=== PATIENT | male | born 1985 | race Caucasian/White ===

== ENCOUNTER 2017-01-12 07:32 | Day surgery (SDC) | payer OTHER ==
[~2017-01-12 07:32] MED LIST: Midazolam 1 MG/ML 2 ML SDV ONE; fentaNYL 100 MCG/2 ML SDV ONE
[2017-01-12] MEDS ORDERED: Dextrose 5%-0.45% NaCl 1,000 ML IV SCH (08:15)
[2017-01-12] MEDS ORDERED: fentaNYL 100 MCG/2 ML SDV IV ONE ×3 (08:25→14:56)
[2017-01-12] MEDS ORDERED: Midazolam 1 MG/ML 2 ML SDV IV ONE ×3 (08:25→14:56)
[2017-01-12 10:29] VITALS: BP 128/82
--- NOTE | 2017-01-12 13:41 | OR ---
DATE: 01/12/2017 PROCEDURE: Esophagogastroduodenoscopy and multiple pinch biopsies. INSTRUMENT USED: GIF-Q180 Olympus video panendoscope. PREMEDICATIONS: No oral topical anesthesia used. Fentanyl 100 mcg intravenous, Versed 2 mg intravenous. The procedure was done under pulse oximetry, BP recording, and cone treater. INDICATION: The patient with persistent chest and abdominal pain, as well as diarrhea unexplained and not responsive to medical measures. The esophagogastroduodenoscopy is performed for detection of active erosive lesions, Sunshine esophagus and/or malignancy also under consideration, H. pylori status to be determined, small bowel biopsies to be obtained for celiac disease, endoscopic hemostasis therapy if needed. DESCRIPTION OF PROCEDURE: The scope was passed with ease. Adequate visualization of the esophagus was made from proximal to distal areas. No upper esophageal lesions identified. No distal esophageal stricture. No uphill or downhill esophageal varices. No Olga-Chinchilla tear. No evidence of erosive esophagitis by Wake criteria. No esophageal polyp or tumor mass identified. Z-line was seen at around 40 cm distal to the oral verge, configuration consistent with grade 1 by ZAP classification. No proximal gastric varices noted. Gastric fundus examination by retroflexion showed no polypoid lesions, no gastric ulcer, malignant mass, or vascular ectasia identified. Duodenal bulb showed no ulcer, visualized second part of the duodenum was unremarkable. Multiple pinch biopsies, 4 in number were taken from different areas of the second part of the duodenum, and tissues were also obtained from the duodenal bulb at 9 and 12 o'clock positions and sent for any histopathologic evidence of celiac disease. Multiple pinch biopsies were taken from the gastric antrum and proximal body and sent for PyloriTek test for H. pylori and histopathology. No bleeding was noted from any of the visualized areas at the completion of examination. IMPRESSION: Normal study. The patient tolerated the procedure well. [facility] /[id number]
== END 2017-01-12 10:35 | disposition home or self-care (01) ==
LOC: DL.ENDO 07:32
PROVIDERS: ATTEND Internal Medicine Gastroenterology
DX: R07.9 Chest pain, unspecified (principal); R10.9 Unspecified abdominal pain; E66.9 Obesity, unspecified; Z98.890 Other specified postprocedural states
CPT/HCPCS: 43239; 87077; J2250; J3010; J7042

== ENCOUNTER 2017-01-21 05:30 | Day surgery (SDC) | payer OTHER ==
[2017-01-21] MEDS ORDERED: Dextrose 5%-0.45% NaCl 1,000 ML IV SCH (06:00)
[2017-01-21] MEDS ORDERED: Midazolam 1 MG/ML 2 ML SDV ONE (06:16)
[2017-01-21] MEDS ORDERED: fentaNYL 100 MCG/2 ML SDV ONE (06:16)
[2017-01-21] MEDS ORDERED: fentaNYL 100 MCG/2 ML SDV IV ONE ×4 (06:32→15:55)
[2017-01-21] MEDS ORDERED: Midazolam 1 MG/ML 2 ML SDV IV ONE ×7 (06:33→15:55)
[2017-01-21 09:31] VITALS: BP 126/77
--- NOTE | 2017-01-21 11:11 | OR ---
DATE: 01/21/2017 PROCEDURE: Total colonoscopy. INSTRUMENT USED: CF-H180AL Olympus video colonoscope; Olympus distal disposable fashion. PREMEDICATIONS: Fentanyl 150 mcg intravenous, Versed 4 mg intravenous. The procedure was done under pulse oximetry, BP recording, and clinical research monitor. INDICATION: The patient with chronic diarrhea, abdominal pain, and rectal bleeding unexplained. Colonoscopic examination is done for detection of any polypoid lesions and removal. Biopsies to be obtained for microscopic colitis if indicated, endoscopic hemostasis therapy if needed. DESCRIPTION OF PROCEDURE: Initial rectal exam showed some anal sphincter spasm. Limited rigid anoscopic examination was unremarkable. The colonoscope was passed with ease. Few diverticula were noted in the distal left colon. The scope was passed with ease up to the ileocecal area. Photographs were taken of the normal-appearing cecum, identified by double-bulged ileocecal folds and appendiceal orifice. No bleeding was noted from any of the visualized areas at the commencement of the examination. No stricture. No vascular ectasia. No large isolated ulcerations seen. No evidence of diffuse inflammatory bowel disease in the form of friability, contact bleeding, or ulcerations. No polyp or tumor mass identified. Probing the proximal sides of folds and then flexures using adequate distention and clearing up the stool material, withdrawal of the scope was made. Multiple pinch biopsies were taken from the normal-appearing mucosa of the midtransverse colon, middescending colon, and rectosigmoid, and sent for any histopathologic evidence of microscopic colitis. No bleeding was noted from any of the visualized areas at the completion of examination. IMPRESSION: Diverticulosis. The patient tolerated the procedure well. [facility] /[id number]
== END 2017-01-21 08:54 | disposition home or self-care (01) ==
LOC: DL.ENDO 05:30
PROVIDERS: ATTEND Internal Medicine Gastroenterology
DX: K57.30 Diverticulosis of large intestine without perforation or abscess without bleeding (principal); E66.9 Obesity, unspecified; Z98.890 Other specified postprocedural states; Z79.899 Other long term (current) drug therapy
CPT/HCPCS: 45380; J2250; J3010; J7042